=== PATIENT | male | born 1955 | race Caucasian/White ===

== ENCOUNTER 2020-11-15 20:20 | Observation (INO) | payer OTHER ==
[~2020-11-15] VITALS: Ht 172.7 cm; Wt 73.0 kg
[~2020-11-15 20:20] MED LIST: CARB10OTL BOTHEARS; CEPH500 PO; DEPO-TESTO200 MG/1 M IM; FLONASE ALLERG9.9 M2 PO; LISI20 PO; Norco 5-325 Ta1 EACH PO; QUET300 PO; ZYRTEC10 M2 PO
[2020-11-15 22:42] LABS: BASOPHILS ABSOLUTE AUTO 0.03 K/mm3 (0.00-0.23); BASOPHILS PERCENT AUTO 0 % (0-2); EOSINOPHILS ABSOLUTE AUTO 0.04 K/mm3 (0.00-0.68); EOSINOPHILS PERCENT AUTO 1 % (0-6); Hematocrit 41.4 % (37.0-53.0); Hemoglobin 14.6 g/dL (13.5-17.5); IMMATURE GRAN ABSOLUTE AUTO 0.02 K/mm3 (0.00-0.10); IMMATURE GRAN PERCENT AUTO 0 % (0-1); LYMPHOCYTES ABSOLUTE AUTO 1.26 K/mm3 (0.84-5.20); LYMPHOCYTES PERCENT AUTO 18 % (21-46); MONOCYTES ABSOLUTE AUTO 0.27 K/mm3 (0.16-1.47); MONOCYTES PERCENT AUTO 4 % (4-13); Mean Corpuscular HGB 32.4 pg (26.0-34.0); Mean Corpuscular HGB Conc 35.3 g/dL (31.5-36.5); Mean Corpuscular Volume 92 fL (80-100); Mean Platelet Volume 10.5 fL (9.1-12.4); NEUTROPHILS PERCENT AUTO 77 % (41-73); Platelet Count 178 K/mm3 (150-400); RDW Coefficient Variation 12.2 % (11.7-14.2); White Blood Cell Count 7.12 K/mm3 (4.00-11.30)
[2020-11-15 22:57] LABS: International Normalized Ratio 1.01; Prothrombin Time Results 10.9 Sec (9.7-11.5)
[2020-11-15 23:04] LABS: Alanine Aminotransfer (ALT/SGP 43 U/L (12-78); Albumin, Blood 4.1 g/dL (3.4-5.0); Albumin/Globulin Ratio 1.3 (0.8-1.8); Alk Phos 62 U/L (50-136); Anion Gap 7 mmol/L (6-16); Aspartate Aminotrans (AST/SGOT 34 U/L (12-37); Bilirubin, Total 0.7 mg/dL (0.1-1.0); Blood Urea Nitrogen 16 mg/dL (8-24); Bun/Creatinine Ratio 16.6 (12.0-20.0); CO2, Blood 27 mmol/L (21-32); Calcium, Blood 8.3 mg/dL (8.5-10.1); Chloride, Blood 101 mmol/L (98-108); Creatinine, Blood 0.97 mg/dL (0.60-1.20); Globulin, Blood 3.1 g/dL (2.2-4.0); Glomerular Filtration Rate >60 (60-); Glucose, Blood 98 mg/dL (70-99); Potassium, Blood 4.5 mmol/L (3.5-5.5); Sodium, Blood 135 mmol/L (136-145); Total Protein, Blood 7.2 g/dL (6.4-8.2); Troponin I <0.015 ng/mL (0.000-0.040)
[2020-11-15 23:51] LABS: CHOL/HDL RATIO 2.3; Cholesterol 125 mg/dL (50-200); HDL Cholesterol 55 mg/dL (>39); LDL/HDL RATIO 1.1; Low Density Lipoprotein Chol 58 mg/dL (0-110); Triglycerides 60 mg/dL (30-160); Very Low Density Lipoprot Chol 12 mg/dL (6-32)
[2020-11-15] MEDS ORDERED: BUPR150ER PO (23:59)
--- NOTE | 2020-11-16 01:04 | NUR ---
ADMIT PT ARRIVED TO @0055 VIA W/C, IND TRANSFERRED TO BED. ADMITTED FOR TIA/CVA SYMPTOMS. ORIENTED TO & CALL LIGHT. WILL MONITOR.
--- NOTE | 2020-11-16 06:05 | NUR ---
SHIFT SUMMARY BP SLIGHTLY ELEVATED LAST NIGHT @171/101, PARAMETERS FOR HYDRALAZINE >180. THIS AM BP @147/85. AOX4. FOLLOWS DIRECTIONS. CLEAR SPEECH. SLOW TO RESPOND @TIMES. REPORTED "PULSING THROBBING PRESSURE" AROUND L EAR LAST NIGHT, DENIES THE FEELING THIS AM. 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 STEADY BALANCED GAIT. NO FACIAL DROOP. REPORTS HE NO LONGER HAS ANY OF THE SYMPTOMS WHICH ORIGIONALLY BROUGHT HIM TO HOSPITAL. R INDEX FINGER HAS SUTURES FROM 2WKS PRIOR, CRUSTED & PAINFUL c TOUCH. REPORTS HE "CUT" HIS FINGER VIA STEAM TUNNEL FEEDER. TOOK PIC & PLACED IN CHART. PLAN TO HAVE ECHO TODAY. CALL LIGHT IN REACH & PT ABLE TO MAKE NEEDS KNOWN.
--- NOTE | 2020-11-16 09:43 | NUR ---
Echocardiogram completed.
[2020-11-16] MEDS ORDERED: AMLO5 PO (15:08)
[2020-11-16] MEDS ORDERED: ATOR20 PO (15:08)
[2020-11-16] MEDS ORDERED: ASPI81CH PO (15:08)
[2020-11-16] MEDS ORDERED: HYDROCHLOROTH12.5 MG PO (15:09)
--- NOTE | 2020-11-16 15:54 | NUR ---
Discharge Summary A/Ox4, pleasant and cooperative. A little forgetful. Up independently in room and to bathroom. Appetite has been good. Discharging home. Reviewed discharge paperwork with patient, questions answered to patient's satisfaction. Copy given. IV removed, WNL. Meds faxed to [facility]. Escorted by TRACTOR OPERATOR [employer]. Personal belongings sent home. Friend to transport home.
== END 2020-11-16 15:58 | disposition home or self-care (01) ==
LOC: ER 20:20 → MEDS 20:21
PROVIDERS: Emergency Medicine; ADMIT Family Medicine
DX: G45.9 Transient cerebral ischemic attack, unspecified (principal); I16.0 Hypertensive urgency; I65.02 Occlusion and stenosis of left vertebral artery; R41.3 Other amnesia; I10 Essential (primary) hypertension; J44.9 Chronic obstructive pulmonary disease, unspecified; F32.9 Major depressive disorder, single episode, unspecified; E87.1 Hypo-osmolality and hyponatremia; E23.0 Hypopituitarism; Z89.021 Acquired absence of right finger(s); Z87.891 Personal history of nicotine dependence
CPT/HCPCS: 70450; 70496; 70498; 80053; 80061; 82947; 84484; 85025; 85610; 85730; 86850; 86900; 86901; 93005; 93010; 93306; 96372; 99285-25; A9270; A9270-GY; G0378; J1650; Q9967